=== PATIENT | female | born 1990 | race Two or more races ===

== ENCOUNTER 2017-06-05 02:06 | Emergency (ER) | payer SELFPAY ==
[~2017-06-05] VITALS: Ht 162.6 cm; Wt 68.0 kg
[2017-06-05 02:15] VITALS: BP 113/71
[2017-06-05] MEDS ORDERED: IBUPROFEN600 MG ORAL (03:11)
--- NOTE | 2017-06-05 03:11 | Emergency Room Report ---
History of Present Illness General Chief Complaint: Upper Extremity Injury Source: Patient Present Illness HPI Is a 26-year-old female who is right-handed. She presents with chief complaint of left index finger pain. She was playing basketball this evening and the ball hit her in the tip of the index finger. She complaining of some pain over that area. Now with numbness and pain going to her hand. Worse with movement. No other injury. Pain is 8/10. Allergies: Coded Allergies: BEE VENOM PROTEIN (HONEY BEE) (Verified Allergy, Unknown, 06/05/17) Patient History Past Medical History: see triage record, old chart reviewed Past Surgical History: none Pertinent Family History: none Social History: Denies: smoking Last Menstrual Period: 05/21/17 Now: No : 3 Para: 3 Immunizations: other Reviewed Nursing Documentation: PMH: Agreed, PSxH: Agreed Nursing Documentation-PMH Past Medical History: No History, Except For Review of Systems Eye: Denies: eye pain, blurred vision ENT: Denies: ear pain, nose congestion, throat swelling Respiratory: Denies: cough, shortness of breath Cardiovascular: Denies: chest pain, palpitations Gastrointestinal: Denies: abdominal pain, diarrhea, nausea, vomiting Musculoskeletal: Reports: joint pain, Denies: back pain Skin: Denies: rash Neurological: Denies: headache, numbness Endocrine: Denies: increased thirst, increased urine Hematologic/Lymphatic: Denies: easy bruising All Other Systems: negative except mentioned in HPI Physical Exam Vital Signs Date Time Temp Pulse Resp B/P (MAP) Pulse Ox O2 Delivery O2 Flow Rate FiO2 06/05/17 02:12 98.1 71 14 113/71 97 Room Air vitals normal Sp02 EP Interpretation: reviewed, normal General Appearance: well appearing, no apparent distress, alert Head: normocephalic, atraumatic Eyes: bilateral eye PERRL, bilateral eye EOMI ENT: hearing grossly normal, normal pharynx Neck: full range of motion, supple, no meningismus Respiratory: chest non-tender, lungs clear, normal breath sounds Cardiovascular #1: regular rate, rhythm, no murmur Gastrointestinal: normal bowel sounds, non tender, no mass, no organomegaly, no bruit, non-distended Musculoskeletal: back normal, gait/station normal, normal range of motion, other - Tenderness to the tip of the index finger. Full range of motion of the MCP, PIP and DIP joint of that finger. Sensation normal. No edema. Neurologic: alert, oriented x3 Psychiatric: mood/affect normal Skin: warm/dry Procedures Splinting Splinting : Consent: Verbal Location: Left index fi Pre-Made Type: Metal finger splint Pre-Proc Neuro Vasc Exam: normal Post-Proc Neuro Vasc Exam: normal Patient Tolerated: Well Complications: None Medical Decision Making Diagnostic Impression: Primary Impression: Sprain of finger of left hand Qualified Codes: S63.631A - Sprain of interphalangeal joint of left index finger, initial encounter ER Course Patient present with a sprain of the finger. No fracture or dislocation. We' ll discharge home. Other X-Ray Diagnostic Results Other X-Ray Diagnostic Results : X-Ray ordered: Left finger x-rays # of Views/Limited Vs Complete: 3 View Indication: Pain Interpretation: no dislocation, no soft tissue swelling, no fractures Impression: No acute disease Electronically Signed by: Cb Merino MD Last Vital Signs Date Time Temp Pulse Resp B/P (MAP) Pulse Ox O2 Delivery O2 Flow Rate FiO2 06/05/17 02:15 98.1 71 14 113/71 97 Room Air Status: improved Disposition: HOME, SELF-CARE Condition: Stable Scripts Ibuprofen* (MOTRIN*) 600 Mg Tablet 600 MG ORAL Q8H Y for For Pain, #30 TAB 0 Refills Prov: CB MERINO M.D. 06/05/17 Referrals: NOT CHOSEN [facility]/,REFERRING (PCP) Additional Instructions: Followup with your DrHenok in 7 days. Ice pack to the area. Return if worse. CB MERINO M.D. Jun 05, 2017 03:11
[2017-06-05 03:15] VITALS: BP 121/65
--- NOTE | 2017-06-05 09:50 | Diagnostic Imaging Report ---
Indication: Pain, trauma, jammed index finger Technique: 3 views of the left index finger Comparison: none Findings: No acute fractures. No dislocations. The joint spaces are preserved. Impression: Negative
== END 2017-06-05 03:15 | disposition home or self-care (01) ==
LOC: EMR 02:20
DX: S63.611A Unspecified sprain of left index finger, initial encounter (principal); W21.05XA Struck by basketball, initial encounter; Y93.67 Activity, basketball; Y92.89 Other specified places as the place of occurrence of the external cause
CPT/HCPCS: 99283